=== PATIENT | female | born 1985 | race Caucasian/White ===

== ENCOUNTER 2022-01-26 02:09 | Day surgery (SDC) | payer SELFPAY ==
[2022-01-26] MEDS ORDERED: hydrALAZINE 20 MG/ML VIAL SLOW IVP PRN (03:08)
[2022-01-26 03:27] VITALS: BMI 25.2
== END 2022-01-26 03:17 | disposition home or self-care (01) ==
LOC: CSHLD/OP 02:09
PROVIDERS: ATTEND Obstetrics & Gynecology
DX: O47.1 False labor at or after 37 completed weeks of gestation (principal); O09.523 Supervision of elderly multigravida, third trimester; O48.0 Post-term pregnancy; Z3A.40 40 weeks gestation of pregnancy
CPT/HCPCS: 99282

== ENCOUNTER 2022-01-26 11:37 | Inpatient (IN) | payer OTHER, SELFPAY ==
[2022-01-26 12:05] VITALS: BMI 25.2
[2022-01-26] MEDS ORDERED: Lidocaine 1% (PF) 30 ML VIAL SC PRN (12:07)
[2022-01-26] MEDS ORDERED: Misoprostol 200 MCG TAB PR PRN (12:07)
[2022-01-26] MEDS ORDERED: HYDROcodone/Acetaminophen 5/325 mg Tablet PO PRN ×2 (12:07→19:02)
[2022-01-26] MEDS ORDERED: hydrALAZINE 20 MG/ML VIAL SLOW IVP PRN ×2 (12:07→19:02)
[2022-01-26] MEDS ORDERED: Carboprost 250 MCG/ML AMP IM PRN (12:07)
[2022-01-26] MEDS ORDERED: Acetaminophen 500 MG TAB PO PRN (12:07)
[2022-01-26] MEDS ORDERED: Ibuprofen 800 MG TAB PO PRN (12:07)
[2022-01-26] MEDS ORDERED: Promethazine HCl 25 MG/ML VIAL IM PRN (12:07)
[2022-01-26] MEDS ORDERED: Butorphanol Tartrate 1 MG/ML VIAL SLOW IVP PRN (12:07)
[2022-01-26] MEDS ORDERED: Ondansetron PF 4 MG/2 ML Vial IVP PRN (12:07)
[2022-01-26] MEDS ORDERED: Methylergonovine 0.2 MG/ML VIAL IM PRN (12:07)
[2022-01-26] MEDS ORDERED: NS w/ Oxytocin 30 units 500 ML IV SCH (12:15)
[2022-01-26 13:14] LABS: Hemoglobin 13.8 g/dL (12.0-15.5); Mean Corpuscular HGB CONC 34.8 g/dL (32.0-36.0); Mean Corpuscular Hemoglobin 31.3 pg (27.0-33.0); Mean Platelet Volume 10.6 fl (7.4-10.4); Platelet Count 181 10x3/uL (150-450); RBC Distribution Width 13.3 % (11.5-14.5); Red Blood Cell (RBC) Count 4.41 10x6/uL (3.90-5.03); White Blood Cell (WBC) Count 8.6 10x3/uL (3.5-10.5)
[2022-01-26 13:47] LABS: Syphilis Antibody Nonreactive (Nonreactive); Syphilis Antibody Index 0.05 S/CO (<1.00 Non-Reactive)
[2022-01-26 13:48] LABS: Hep B Surf Ag Non-Reactive S/CO (NonReactive)
[2022-01-26] MEDS ORDERED: Oxytocin 10 UNITS/ML VIAL ONE (13:52)
[2022-01-26 14:00] LABS: HBSAg Index 0.19 S/CO (0-0.99)
[2022-01-26 17:29] LABS: HIV (1/2) Antibody/Antigen Non-Reactive (NonReactive); HIV 1/2 INDEX 0.08 S/CO (<1.00)
[2022-01-26] MEDS ORDERED: Boostrix 0.5 ML (Tdap) VIAL IM ONE (19:02)
[2022-01-26] MEDS ORDERED: Benzocaine-Menthol 82.5 ML CAN TOP PRN (19:02)
[2022-01-26] MEDS ORDERED: Bisacodyl 10 MG SUPP PR PRN (19:02)
[2022-01-26] MEDS ORDERED: Milk Of Magnesia 30 ML UDCUP PO PRN (19:02)
[2022-01-26] MEDS ORDERED: Ferrous Sulfate 325 MG TAB PO SCH (19:15)
[2022-01-26] MEDS: Ibuprofen 800 MG TAB PO SCH (21:24)
[2022-01-26] MEDS: Docusate 100 MG CAP PO SCH (21:26)
[2022-01-27] MEDS: Ibuprofen 800 MG TAB PO SCH ×2 (06:17→13:39)
[2022-01-27] MEDS: Docusate 100 MG CAP PO SCH (07:58)
[2022-01-27] MEDS ORDERED: Ferrous Sulfate 325 MG TAB PO SCH (08:00)
[2022-01-27 11:13] VITALS: BP 107/64; TEMP 97.5
== END 2022-01-27 17:05 | disposition home or self-care (01) | DRG 807 ==
LOC: CSHLD/OP 11:37 → CSHLD 13:24 → CSHPP 18:32
PROVIDERS: ADMIT Family Medicine; ATTEND Family Medicine
PROC: 10E0XZZ Delivery of Products of Conception, External Approach (ICD-10-PCS; principal; 2022-01-26)
DX: O69.81X0 Labor and delivery complicated by cord around neck, without compression, not applicable or unspecified (principal); Z37.0 Single live birth; Z3A.40 40 weeks gestation of pregnancy
CPT/HCPCS: 36415; 85027; 86780; 86850; 86900; 86901; 87340; 87389; 99285